=== PATIENT | female | born 2000 | race Caucasian/White ===

== ENCOUNTER 2023-06-19 18:53 | Emergency (ER) | payer BC, SELFPAY ==
--- NOTE | ~2023-06-19 | CT_ITS ---
CT scan of the Neck Technique: 2.5 mm axial scans were obtained through the neck after intravenous administration of 75 c c Omnipaque 350. Coronal and sagittal reconstructions of the neck were obtained. Dose reduction techn ique was used on this scan by utilizing automated exposure control and iterative reconstruction techn ique. The dose-length product (DLP) was 515.81 mGy-cm. Clinical History: Peritonsillar abscess Findings: There is enlargement of the bilateral palatine tonsils with mild narrowing of the airway, compatible tonsillitis. No peritonsillar abscess evident. Bilateral cervical lymphadenopathy, predominantly leve l 2, is present, most likely reactive. Parapharyngeal spaces appear normal bilaterally. The parotid a nd submandibular glands appear normal. The pharyngeal mucosal spaces appear normal. No soft tissue masses are seen in the neck. The thyroid gland appears normal. Images of the lung apices reveal no abnormalities. Impression: Acute palatine tonsillitis with mild narrowing of the airway. No peritonsillar abscess. Bilateral cervical lymphadenopathy, presumably reactive. Reviewed, dictated and finalized at [facility]. T [employer] Impression: Acute palatine tonsillitis with mild narrowing of the airway. No peritonsillar abscess. Bilateral cervical lymphadenopathy, presumably reactive.
[2023-06-19 18:54] VITALS: BP 135/60; PULSE 83; RESP 20; TEMP 36.1; O2SAT 100
--- NOTE | 2023-06-19 19:41 | ED.GENADULT ---
HPI - General Adult General Chief complaint: Unspecified Stated complaint: tonsil abcess Time Seen by Provider: 06/19/23 18:58 Source: patient Mode of arrival: ambulatory Limitations: no limitations History of Present Illness HPI narrative: Patient is a 23 y/o female who presents to the ED with c/o sore throat. Patient reports she developed a sore throat around 5 days ago, which has been worsening since then. She began noticing that her left-sided tonsil has been increasingly swollen and has white patches on it. She reports painful swallowing, denies significant difficulty swelling. Denies difficulty breathing. Denies known fevers. Denies significant cough, congestion, rhinorrhea. Patient was seen at an urgent care today and was advised to come to the ED for evaluation of possible peritonsillar abscess. Related Data Allergies Allergy/AdvReac Type Severity Reaction Status Date / Time No Known Allergies Allergy Verified 06/19/23 18:56 Review of Systems Review of Systems: CONSTITUTIONAL: Denies fever, chills, or sweats. ENT: See HPI. CARDIOVASCULAR: Denies chest pain. RESPIRATORY: Denies cough or dyspnea. All systems reviewed & are unremarkable except as noted in HPI and below [facility] Social History Social History Smoking status: Never smoker Alcohol intake: never Exam Narrative: GENERAL: Well appearing, morbidly obese with BMI of 47.0, non-toxic, in no acute distress. HEAD: Normocephalic, atraumatic. ENT: Airway patent. No stridor. Bilateral tonsillar hypertrophy, worse on left. Slight protrusion of left tonsillar bed. Left tonsil does appear diffusely exudative. Moderate posterior pharynx erythema. Uvula nearly touching L tonsil, minimal deviation. RESPIRATORY: Airway patent, respirations nonlabored. Clear to auscultation bilaterally, no rales, rhonchi, wheezing. No stridor or distress. CARDIOVASCULAR: Regular rate and rhythm. MUSCULOSKELETAL: Moves all extremities. No gross deformities. SKIN: Warm, dry, normal color. NEURO: A&O X3. Speech clear. Cranial nerves II-XII grossly intact. No ataxic movements. PSYCHIATRIC: Appropriate mood and affect. Normal interaction. Course Vital Signs Vital signs: Vital Signs Temperature 97 F L 06/19/23 18:54 Pulse Rate 83 01/06/24 18:54 Respiratory Rate 20 06/19/23 18:54 Blood Pressure 135/60 06/19/23 18:54 Pulse Oximetry 100 06/19/23 18:54 Oxygen Delivery Room Air 06/19/23 18:54 Temperature 97.6 F 06/20/23 00:02 Pulse Rate 16 L 06/20/23 00:02 Respiratory Rate 16 06/20/23 00:02 Blood Pressure 126/86 06/20/23 00:02 Pulse Oximetry 94 06/20/23 00:02 Oxygen Delivery Room Air 06/19/23 18:54 Medical Decision Making MDM Narrative Medical decision making narrative: Patient presented to ED from urgent care with concern for peritonsillar abscess, tested negative for strep throat at Urgent Care. Exam does appear concerning for left-sided peritonsillar abscess though bilateral tonsils are quite enlarged. CBC with white blood cell count of 9.2. Laboratory studies otherwise unremarkable. Marshall testing negative. CT soft tissue neck showing acute tonsillitis with mild narrowing of the airway. No peritonsillar abscess noted. Patient given fluids, Decadron, Unasyn in the ED. Given potential for airway compromise, discussed with patient possible admission/overnight observation, continued IV antibiotic/steroids. Unfortunately we do not have ENT here this weekend. Will consult ENT at outside facility. Discussed case with Dr. Chatman, ENT @ [facility], who reviewed CT images himself. Advised larynx and epiglottal region appear normal/patent, no concern for airway compromise based on imaging and reported patient clinical presentation. Discussed case with Dr. Bernal, ENT @ [facility], also felt that based on reported clinical presentation, no significant concern for airway compromise. Elias
[2023-06-19] MEDS: SODIUM CHLORIDE 0.9% IV 1,000 ML 999 ML IV CONT (19:47)
[2023-06-19] MEDS: AMPICILLIN SULB 3 GM/NS 100 ML 3 GM/100 ML VIAL IVPB (19:48)
[2023-06-19 19:54] LABS: Basophils Absolute Auto 0.1 K/mm3 (0.0-0.1); Basophils Percent Auto 0.6 % (0.2-1.2); Eosinophils Absolute Auto 0.3 K/mm3 (0-0.3); Eosinophils Percent Auto 3.4 % (0-4.4); Hematocrit 36.1 % (37.0-47.0); Hemoglobin 11.4 g/dL (12.0-15.0); Immature Granulocyte Absolute 0.03 K/mm3 (0.00-0.031); Immature Granulocyte Percent A 0.3 % (0-0.5); Lymphocytes Percent Auto 20.6 % (18.3-44.2); Mean Corpuscular HGB Conc 31.6 g/dl (32-36); Mean Corpuscular Hemoglobin 27.7 pg (26-34); Mean Corpuscular Volume 87.8 fl (80-100); Mean Platelet Volume 9.1 fl (7.4-10.4); Monocytes Absolute Auto 0.5 K/mm3 (0.1-0.6); Neutrophils Absolute Auto 6.5 K/mm3 (1.3-6.7); Neutrophils Percent Auto 70.1 % (45.5-73.1); Platelet Count Result 316 k/mm3 (150-375); Red Blood Count 4.11 M/mm3 (4.2-5.4); Red Cell Distribution Width 13.2 % (11.5-14.5); White Blood Count 9.2 K/mm3 (4.5-10.0)
[2023-06-19 20:09] LABS: Alanine Aminotransferase 25 U/L (6-35); Albumin Level 4.3 g/dL (3.5-5.1); Alkaline Phosphatase 74 U/L (38-126); Anion Gap 6 mmol/L (8-16); Aspartate Amino Transferase 42 U/L (14-36); Bilirubin,Total 0.8 mg/dL (0.2-1.3); Blood Urea Nitrogen 7 mg/dL (7-17); Calcium 9.3 mg/dL (8.4-10.2); Carbon Dioxide 30 mmol/L (22-30); Chloride 102 mmol/L (98-107); Estimated CRCL calculation 212 ml/min; Estimated Glomerular Filt Rate > 60; Glucose 80 mg/dL (65-110); Potassium 3.8 mmol/L (3.4-5.0); Sodium 138 mmol/L (137-145)
[2023-06-19 21:02] LABS: Estimated CRCL calculation 180 ml/min; Estimated Glomerular Filt Rate > 60
[2023-06-19 21:07] LABS: Monoscreen Negative (Negative); Positive Monotest Control Positive (Positive)
[2023-06-19 21:08] LABS: Negative Monotest Control Negative (Negative)
[2023-06-19 21:43] VITALS: RESP 17; O2SAT 100
[2023-06-19 23:04] VITALS: BP 136/89; PULSE 75; RESP 16; O2SAT 100
[2023-06-20 00:02] VITALS: BP 126/86; PULSE 80; RESP 16; TEMP 36.4; O2SAT 94
== END 2023-06-20 00:03 | disposition home or self-care (01) ==
PROVIDERS: Emergency Provider Physician Assistant; PCP Family Medicine
DX: J03.90 Acute tonsillitis, unspecified (principal)
CPT/HCPCS: 36415; 70491; 80053; 85025; 86308; 96365; 96375; 99284; J0295; J1100; J7030; Q9967